=== PATIENT | male | born 1965 | race Caucasian/White ===

== ENCOUNTER 2020-01-13 09:55 | Inpatient (IN) | payer MEDICARE, MEDICAID ==
[2020-01-13] VITALS (33 sets, daily range): BP systolic 86–166; BP diastolic 70–98
[~2020-01-13] VITALS: Ht 167.6 cm; Wt 90.0 kg
[~2020-01-13 09:55] MED LIST: GABA100C9 PO; GLIM4TAB42 PO; METF-370 PO; MUPI2CRE17 EX; SITA50TA13 PO; SULF-35 PO
[2020-01-13 10:52] LABS: Basophils # (auto) 0.1 10 ^3/uL (0-0.2); Basophils % (auto) 0.9 % (0.0-2.0); Eosinophils # (auto) 0 10 ^3/uL (0-0.8); Eosinophils % (auto) 0.1 % (0.0-7.0); Hematocrit 47.2 % (41.0-53.0); Hemoglobin 15.5 g/dL (13.5-17.5); Lymphocytes % (auto) 6.5 % (10.0-50.0); Mean Corpuscular Hemoglobin 28.7 pg (28.0-32.0); Mean Corpuscular Hgb Conc. 32.8 g/dL (32.0-36.0); Mean Corpuscular Volume 87.5 fL (80.0-100.0); Monocytes # (auto) 0.6 10 ^3/uL (0-1.3); Monocytes % (auto) 3.4 % (0.0-12.0); Neutrophils # (auto) 14.3 10 ^3/uL (1.6-8.6); Neutrophils % (auto) 89.1 % (37.0-80.0); Nucleated Red Blood Cells % 0.1 %; Platelet Count (auto) 325 10^3/uL (140-450); Red Blood Cells 5.39 10^6/uL (4.5-5.90); Red Cell Distribution Width 13.4 % (11.8-14.3)
[2020-01-13] MEDS ORDERED: SODIUM CHLORIDE 0.9% 1,000 ML IVB ONE (11:04)
[2020-01-13 11:08] LABS: Albumin 4.3 g/dL (3.4-5.0); Anion Gap 19 (5-15); Blood Urea Nitrogen 31 mg/dL (7-18); Calcium 10.8 mg/dL (8.5-10.1); Carbon Dioxide 19 mmol/L (21-32); Chloride 98 mmol/L (98-107); Potassium 3.7 mmol/L (3.5-5.1); Sodium 136 mmol/L (136-145)
[2020-01-13 11:14] LABS: Alanine Aminotransferase 23 U/L (16-61); Alkaline Phosphatase 93 U/L (45-117); Aspartate Aminotransferase 17 U/L (15-37); BUN/Creatinine Ratio 18.9; Bilirubin, Total 1.1 mg/dL (0.2-1.0); GFR African American 57 mL/min; GFR Non-African American 47 mL/min
[2020-01-13] MEDS ORDERED: ALUM & MAG HYDROX-SIMETH LIQ(MAALOX) 30 ML PO ONE (11:15)
[2020-01-13] MEDS ORDERED: DONNATAL 5ml ORAL Elix (BELLADONNA ALK-PHENOBARB) PO ONE (11:15)
[2020-01-13] MEDS ORDERED: HYDROmorphone HCL 2 MG/ML VL IV ONE (11:15)
[2020-01-13] MEDS ORDERED: FAMOTIDINE 20 MG TAB PO ONE (11:15)
[2020-01-13] MEDS ORDERED: PROMETHAZINE HCL 25 MG/ML 1ML IV PRN (11:15)
[2020-01-13 11:41] LABS: Glucose 545 mg/dL (74-106)
[2020-01-13 12:41] LABS: Urine Bacteria FEW /hpf (None Seen); Urine Blood Negative /uL (Negative); Urine Specific Gravity 1.025 (1.001-1.035); Urine WBC <1 /hpf (0 - 3)
[2020-01-13] MEDS ORDERED: InsuLIN REG 1unit/0.01ml Soln (100units/ml) IV ONE (12:45)
[2020-01-13] MEDS ORDERED: SOD CHL 0.9%/ KCL 20MEQ 1,000 ML IV ONE (12:45)
[2020-01-13] MEDS ORDERED: InsuLIN R (HUMAN) 100 UNITS in SODIUM CHL 0.9% 99 ML IV SCH (13:14)
[2020-01-13] MEDS: SODIUM CHLORIDE 0.9% 1,000 ML IV SCH ×3 (13:14→19:21)
[2020-01-13] MEDS ORDERED: INSULIN LANTUS (GLARGINE) 1 /0.01ml (100units/ml) SC ONE (13:15)
[2020-01-13] MEDS ORDERED: DEXTROSE (50%) 50ML SYRG IV PRN (13:15)
[2020-01-13] MEDS ORDERED: LABETALOL HCL 5 MG/ML ML 20ML VIAL IV PRN (13:30)
[2020-01-13] MEDS ORDERED: MORPHINE SULF INJ 2 MG/ML SYRINGE 1ML IV PRN ×2 (13:30)
[2020-01-13] MEDS ORDERED: NITROGLYCERIN 0.4 MG SL TAB SL PRN (13:30)
[2020-01-13 13:41] LABS: Magnesium 2.1 mg/dL (1.6-2.6); Phosphorus 2.4 mg/dL (2.5-4.90)
[2020-01-13] MEDS: ACCU-CHEK COMFORT CURVE STRIP VI SCH ×7 (13:46→22:33)
[2020-01-13] MEDS: ONDANSETRON HCL 4 MG/2 ML VIAL IV PRN (14:43)
[2020-01-13] MEDS ORDERED: SODIUM CHLORIDE 0.9% 1,000 ML IV SCH (17:14)
--- NOTE | 2020-01-13 17:30 | NUR ---
ADMISSION COMPLETED, SEE COMPLETED INTERVENTIONS. PATIENT ARRIVED AROUND 1430 TO ICU FROM ER STRETCHER. PATIENT ARRIVED IN STABLE CONDITION. RN STARTED INSULIN GTT PER ORDER/ACCUCHECKS Q1.5 HRS. IVF NS WITH 20K COMPLETED AND NOW INFUSING NS ORDERED. RN INSERTED 20 G RIGHT HAND IV ON FIRST ATTEMPT WITH PATIENT TOLERATING WELL. N/V ASSESSED AND ZOFRAN GIVEN WITH SOME RELIEF OF NAUSEA. REFUSED TO LET RN ASSESS BLE AND SACRUM WITH REFUSING TO TAKE PANTS OFF. PATIENT IS HOMELESS AND LIVES IN CAR. STATES HE HAS A CELL PHONE IN CAR AND WANTS TO WALK DOWN TO GET IT. RN VERBALIZED NEED FOR CRITICAL CARE AND INABLIITY TO LEAVE UNIT UNLESS HE SIGNS OUT AMA DUE TO SAFETY OF PATIENT. RN OFFERED SECURITY TO GET PHONE BUT REFUSED STATING "I DONT TRUST ANYONE". SOCIAL SERVICE CONSULT PLACED FOR HOMELESSNESS.
--- NOTE | 2020-01-13 19:18 | NUR ---
OPENING NOTE RECEIVED REPORT FROM MAYCOL LORENZO. PATIENT AOX4 ON 2L NC STATING >95% SPO2. NSR IN 80'S WITH BP 140/83, ON NO PRESSURE MEDICATIONS. PATIENT ON AN INSULIN DRIP @ 1.5 UNITS PER HOUR. NO SIGNS AND SYMPTOMS OF HYPOGLYCEMIA. RIGHT AND LEFT AC 20 IV'S INTACT AND PATENT. INSTRUCTED PATIENT TO USE URINAL. SKIN INTACT. FOR MORE INFORMATIONS SEE INTERVENTIONS. FOR GTTS AND THEIR TITRATIONS SEE IV SPREAD SHEET. CALL LIGHT WITHIN REACH. INSTRUCTED PATIENT TO CALL IN NEED OF ASSISTANCE. ALL FALL AND SAFETY PRECAUTIONS IN PLACE.
--- NOTE | 2020-01-13 19:18 | NUR ---
REPORT GIVEN TO MUSTAPHA LORENZO
[2020-01-13 19:42] LABS: BUN/Creatinine Ratio 23.1; Potassium 3.9 mmol/L (3.5-5.1)
[2020-01-13 19:48] LABS: Alcohol, Urine < 3.0 mg/dL (0-5); Amphetamine Screen, Urine NEGATIVE (NEGATIVE); Barbiturate Scree,Urine NEGATIVE (NEGATIVE); Benzodiazephine Screen, Urine NEGATIVE (NEGATIVE); Cannabinoid Screen, Urine NEGATIVE (NEGATIVE); Cocaine Screen, Urine NEGATIVE (NEGATIVE); Opiate Scree,Urine NEGATIVE (NEGATIVE); Phencyclidine Screen, Urine NEGATIVE (NEGATIVE)
--- NOTE | 2020-01-13 19:48 | NUR ---
insulin drip bs 149, insulin drip changed to 1u/hr per sliding scale
--- NOTE | 2020-01-13 21:16 | NUR ---
BS 144 NO CHANGE ON INSULIN GTT
[2020-01-13] MEDS ORDERED: FAMOTIDINE (10MG/ML) 2ML VL IV SCH (22:00)
--- NOTE | 2020-01-13 22:33 | NUR ---
BS 122
[2020-01-14] VITALS (35 sets, daily range): BP systolic 114–168; BP diastolic 68–93
--- NOTE | 2020-01-14 | NUR ---
bs 127 no change on insulin gtt
[2020-01-14] MEDS: ACCU-CHEK COMFORT CURVE STRIP VI SCH ×11 (00:19→20:09)
[2020-01-14] MEDS: HYDROmorphone HCL 2 MG/ML VL IV PRN ×4 (00:36→17:15)
--- NOTE | 2020-01-14 01:23 | NUR ---
bs 143 no change on insulin gtt
[2020-01-14] MEDS: SODIUM CHLORIDE 0.9% 1,000 ML IV SCH ×3 (01:54→22:05)
--- NOTE | 2020-01-14 02:48 | NUR ---
BLOOD SUGAR - 135, NO CHANGE TO INSULIN GTT.
--- NOTE | 2020-01-14 03:22 | NUR ---
patient refused labs educated patient on the importance of giving blood to have morning labs. patient refused saying "i'm not giving anymore blood until the doctor comes and sees me" when lab roller gold leaf entered the room. held labs at this time.
--- NOTE | 2020-01-14 04:15 | NUR ---
patient refused to be cleaned patient stated "no i don't want you bothering me, i want to keep my pants on"
--- NOTE | 2020-01-14 04:30 | NUR ---
bs 142 no change on insulin gtt
--- NOTE | 2020-01-14 06:03 | NUR ---
bs 125 no change
--- NOTE | 2020-01-14 06:08 | NUR ---
patient expressed he does not need to void patient said "i do not need to pee, i will go when i want to stop bothering me"
--- NOTE | 2020-01-14 07:26 | NUR ---
bs 129 no change
--- NOTE | 2020-01-14 07:30 | NUR ---
INITIAL/ONGOING ASSESSMENT: Patient yelling out for nurse, entered room for assistance. Patient yelling that his arm in hurting, blood pressure cuff is inflating for blood pressure measurement. Educated patient regarding interval of blood pressure measurement for ICU, patient states he want the blood pressure cuff off; informed him that cuff will be repositioned but that it needs to be left on to monitor his vital signs. Patient agreed after cuff adjustment. Patient states that he is having pain and is nauseas, patient medicated as per orders. Patient is also concerned about having elevated blood pressure at this time; informed him that if his blood pressure remains elevated after administration pain medication there are orders for IV blood pressure medication. Patient verbalized understanding.
[2020-01-14] MEDS: ONDANSETRON HCL 4 MG/2 ML VIAL IV PRN ×2 (07:51→17:15)
[2020-01-14 09:05] LABS: Basophils # (auto) 0.1 10 ^3/uL (0-0.2); Basophils % (auto) 0.9 % (0.0-2.0); Eosinophils # (auto) 0 10 ^3/uL (0-0.8); Eosinophils % (auto) 0.4 % (0.0-7.0); Hematocrit 39.9 % (41.0-53.0); Hemoglobin 13.2 g/dL (13.5-17.5); Lymphocytes # (auto) 1.6 10 ^3/uL (0.4-5.4); Lymphocytes % (auto) 13.8 % (10.0-50.0); Mean Corpuscular Hemoglobin 28.8 pg (28.0-32.0); Mean Corpuscular Volume 87.1 fL (80.0-100.0); Monocytes # (auto) 0.6 10 ^3/uL (0-1.3); Monocytes % (auto) 5.5 % (0.0-12.0); Neutrophils % (auto) 79.4 % (37.0-80.0); Nucleated Red Blood Cells % 0.2 %; Platelet Count (auto) 260 10^3/uL (140-450); Red Blood Cells 4.58 10^6/uL (4.5-5.90); Red Cell Distribution Width 13.6 % (11.8-14.3); White Blood Cell 11.3 10^3/uL (4.4-10.8)
[2020-01-14 09:35] LABS: Calcium 8.6 mg/dL (8.5-10.1); Potassium 3.7 mmol/L (3.5-5.1)
[2020-01-14 09:38] LABS: BUN/Creatinine Ratio 17.5; Bilirubin, Total 0.5 mg/dL (0.2-1.0); Total Protein 6.6 g/dL (6.4-8.2)
[2020-01-14] MEDS ORDERED: INSULIN LANTUS (GLARGINE) 1 /0.01ml (100units/ml) SC ONE ×2 (12:26→12:30)
[2020-01-14] MEDS ORDERED: PANTOPRAZOLE 40 MG/10 ML VIAL INJ IV ONE (12:27)
[2020-01-14] MEDS: PANTOPRAZOLE 40 MG/10 ML VIAL INJ IV SCH (12:40)
[2020-01-14] MEDS ORDERED: DEXTROSE (50%) 50ML SYRG IV PRN (13:30)
--- NOTE | 2020-01-14 13:48 | NUR ---
RETURN FROM CT: Patient returned from CT, tolerated procedure well.
--- NOTE | 2020-01-14 15:53 | NUR ---
RN REPORTS THAT PATIENT IS TRANSFERRING WELL AND P.T. WILL PROBABLY NOT BE NEEDED. PHYSICAL THERAPY WILL CONTACT NURSING TOMORROW FOR AN UPDATE.
[2020-01-14] MEDS: InsuLIN REG 1unit/0.01ml Soln (100units/ml) SC SCH ×2 (16:57→20:00)
--- NOTE | 2020-01-14 17:05 | NUR ---
HOSPITALIST PAGED; orthopedically impaired teacher hospitalist paged for pain medication orders. Await return call
--- NOTE | 2020-01-14 17:07 | NUR ---
RETURN PAGE; Spoke with Arsenio Blackman, received order for pain control medication.
[2020-01-14] MEDS ORDERED: HYDROmorphone HCL 2 MG/ML VL ONE (17:11)
--- NOTE | 2020-01-14 19:10 | NUR ---
Report received from Cedrick LORENZO.
--- NOTE | 2020-01-14 19:22 | NUR ---
Bed assignment RM 294B BJ Delgado
--- NOTE | 2020-01-14 19:35 | NUR ---
REPORT IS GIVEN TO LING LORENZO.
--- NOTE | 2020-01-14 19:45 | NUR ---
ICU patient trans to floor SABA,YAMILEX [place] transferred to [facility] via wheelchair on portable 02. All patient medications and personal belongings transferred with patient to receiving floor. Patient care transferred to Sandy LORENZO. patient is med-surg status.
--- NOTE | 2020-01-14 20:00 | NUR ---
RECEIVED PT VIA WHEELCHAIR WITH O2, ALERT AND ORIENTED X 4, DINNER TRAY AT BEDSIDE, IVF NS AT 100ML/HR, C/O NAUSEA AND VOMITING, RECENTLY GIVEN ZOFRAN.
[2020-01-14] MEDS: INSULIN LANTUS (GLARGINE) 1 /0.01ml (100units/ml) SC SCH (22:05)
[2020-01-15] MEDS: ACCU-CHEK COMFORT CURVE STRIP VI SCH ×7 (00:17→23:55)
[2020-01-15] MEDS: ONDANSETRON HCL 4 MG/2 ML VIAL IV PRN ×2 (03:11→12:29)
[2020-01-15] MEDS: HYDROmorphone HCL 2 MG/ML VL IV PRN ×4 (03:11→20:44)
[2020-01-15] MEDS: InsuLIN REG 1unit/0.01ml Soln (100units/ml) SC SCH ×7 (03:17→23:56)
--- NOTE | 2020-01-15 04:15 | NUR ---
PATIENT VERBALIZED, HE DOES NOT NEED PSYCHIATRY CONSULT.
[2020-01-15 05:00] VITALS: BP 131/70
--- NOTE | 2020-01-15 08:00 | NUR ---
Opening Note Assumed care of patient, he is A & O x4 at this time. No s/s of distress, patient c/o pain to the medial upper stomach and abdomen as well nausea, no vomiting at this time. Patient has been dry heaving. POC discussed with patient. Bed is in lowest, locked position, call light within reach. Patient uses urinal independently. Will continue to monitor Q1h and PRN and medicate per orders.
[2020-01-15] MEDS: PANTOPRAZOLE 40 MG/10 ML VIAL INJ IV SCH (08:43)
[2020-01-15] MEDS: SODIUM CHLORIDE 0.9% 1,000 ML IV SCH (08:44)
[2020-01-15 09:00] VITALS: BP 157/91
--- NOTE | 2020-01-15 09:29 | NUR ---
Patient refusing lab draws.
--- NOTE | 2020-01-15 10:55 | NUR ---
Received Social Service consult referral to see pt. Pt is alert and oriented times 3. Pt states he did not ask to see a social services technician and does not wish to see one. Pt states he does not reside in this area. Addendum: 01/15/20 at 1102 by ALEJANDRA GEORGE SS Amended: Links added.
--- NOTE | 2020-01-15 13:03 | NUR ---
Patient signed AMA to smoke. Patient requested to go to his car to retrieve his phone, he is A & O x4, and ambulatory independently at this time. Security requested to escort patient. Educated patient regarding policy.
--- NOTE | 2020-01-15 13:15 | NUR ---
Patient returned to room. Patient informed me that he would like to change rooms, he is not getting along with his roommate. Called program evaluator, Melissa, she is in a meeting at this time. Will attempt to resolve problem with roommate until patient can be moved.
--- NOTE | 2020-01-15 15:10 | NUR ---
Dr. Mitchell at bedside. Discussed EGD with patient, plan for tomorrow.
--- NOTE | 2020-01-15 15:49 | NUR ---
PT IS ABLE TO AMBULATE WITHOUT DIFFICULTY OR SYMPTOMS. NURSING TO MONITOR PATIENT NEEDED.
[2020-01-15] MEDS: SUCRALFATE 1 GM/10 ML ORAL SUSP PO SCH ×2 (16:56→21:46)
[2020-01-15 17:00] VITALS: BP 127/71
--- NOTE | 2020-01-15 18:30 | NUR ---
Patient continues to have nausea and vomiting. Patient tolerated some lunch today, but began with nausea and vomiting following dinner. Medicated per orders.
--- NOTE | 2020-01-15 19:23 | NUR ---
patient refusing for me to assess back. patient educated on benefits of assessing skin. patient refused
--- NOTE | 2020-01-15 19:24 | NUR ---
Opening Shift Note Assumed care of patient. patient is sleeping with bilateral chest rise and fall rr 16. No S/S of distress/SOB or pain shown by patient.W ill continue to monitor for changes Q1hr and PRN. bed in low position and call light within reach.
--- NOTE | 2020-01-15 20:20 | NUR ---
patient educated on POC and informed patient he is to be NPO at midnight. patient educated to leave belongings at bedside during procedure. patient yelled " i am taking my wallet" patient reeducated on hospital policy and patient became angry stating " i am only going to leave my keys here not my wallet.". Will endorse care to dayshift rn.
--- NOTE | 2020-01-15 20:20 | NUR ---
IV removal IV DC'd with clean sterile technique due to iv leaking, catheter fully intact. Pressure dressing applied to site. Patient tolerated well.
--- NOTE | 2020-01-15 20:44 | NUR ---
pain patyient reports abd pain of 6/10 aching. patient mediated per protocol
--- NOTE | 2020-01-15 21:14 | NUR ---
pain reassessment. patient reports pain 0/10
[2020-01-15 22:00] VITALS: BP 139/81
[2020-01-15] MEDS: PANTOPRAZOLE 40 MG TAB PO SCH (22:00)
[2020-01-15] MEDS ORDERED: PANTOPRAZOLE 40 MG/10 ML VIAL INJ IV SCH (22:00)
[2020-01-15] MEDS: INSULIN LANTUS (GLARGINE) 1 /0.01ml (100units/ml) SC SCH (22:02)
--- NOTE | 2020-01-15 23:56 | NUR ---
patient refused accu-check scheduled for 0000. patient educated on benefits and risks of monitoring his blood sugar and reason why MD scheduled accu-check. patient verbalized understanding. patient reeducated and yelled " I do not want it you just took it at 1000, leave me alone already!". will continue to monitor q1hr and prn
[2020-01-16] MEDS: InsuLIN REG 1unit/0.01ml Soln (100units/ml) SC SCH ×3 (04:00→12:14)
--- NOTE | 2020-01-16 04:00 | NUR ---
PATIENT REFUSED LINEN CHANGE. Addendum: 01/16/20 at 0425 by ANGEL LUIS WILSON RN RN PATIENT REFUSING VITAL SIGNS PATIENT EDUCATED ON BENEFITS OF VITAL SIGNS AND RISKS OF NOT HAVING VITAL SIGNS TAKEN PER PATIENT " MY BLOOD PRESSURE IS FINE." PATIENT REEDUCATED CONTINUE TO REFUSED. PATIENT VERBALIZED UNDERSTANDING
[2020-01-16] MEDS: ACCU-CHEK COMFORT CURVE STRIP VI SCH ×3 (04:07→12:14)
--- NOTE | 2020-01-16 05:28 | NUR ---
patient refused lab draw. patient educated on benefits and risks of lab not being drawn and that labs are ordered for procedure today. patient upset and yelled " leave me alone come back until after 0800!"
[2020-01-16] MEDS: SUCRALFATE 1 GM/10 ML ORAL SUSP PO SCH ×2 (06:04→11:02)
--- NOTE | 2020-01-16 06:44 | NUR ---
patient rounds patient is in bed sleeping. shows no signs of distress,sob, or pain. bed in low position and call light within reach.
--- NOTE | 2020-01-16 07:11 | NUR ---
REPORT GIVEN DAYSHIFT RN. ENDORSE CARE TO RN THAT PATIENT REFUSED LABS SCHEDULED. PATIENT SHOW NO SIGNS OF DISTRESS SOB OR PAIN
[2020-01-16 08:00] VITALS: BP 159/91
[2020-01-16] MEDS ORDERED: NALOXONE HCL 0.4 MG/ML VIAL ONE (08:50)
[2020-01-16] MEDS ORDERED: LIDOCAINE VISCOUS 2% 15ML UD ONE (08:50)
[2020-01-16] MEDS ORDERED: SODIUM CHLORIDE LOCK 10 ML ONE (08:50)
[2020-01-16] MEDS ORDERED: diphenhdrAMINE HCL 50 MG/1 ML VL ONE (08:51)
[2020-01-16 09:00] VITALS: BP 159/91
[2020-01-16 09:17] LABS: Basophils # (auto) 0.1 10 ^3/uL (0-0.2); Basophils % (auto) 1.5 % (0.0-2.0); Eosinophils # (auto) 0.1 10 ^3/uL (0-0.8); Eosinophils % (auto) 1.7 % (0.0-7.0); Hematocrit 40.6 % (41.0-53.0); Hemoglobin 13.8 g/dL (13.5-17.5); Lymphocytes # (auto) 1.8 10 ^3/uL (0.4-5.4); Lymphocytes % (auto) 21.8 % (10.0-50.0); Mean Corpuscular Hemoglobin 29.1 pg (28.0-32.0); Mean Corpuscular Hgb Conc. 34.1 g/dL (32.0-36.0); Mean Corpuscular Volume 85.2 fL (80.0-100.0); Monocytes # (auto) 0.6 10 ^3/uL (0-1.3); Monocytes % (auto) 7.2 % (0.0-12.0); Neutrophils # (auto) 5.7 10 ^3/uL (1.6-8.6); Neutrophils % (auto) 67.8 % (37.0-80.0); Platelet Count (auto) 249 10^3/uL (140-450); Red Blood Cells 4.76 10^6/uL (4.5-5.90); Red Cell Distribution Width 13.3 % (11.8-14.3); White Blood Cell 8.4 10^3/uL (4.4-10.8)
[2020-01-16 09:31] LABS: INR 1.01 (0.9-1.15)
[2020-01-16 09:34] LABS: Calcium 8.8 mg/dL (8.5-10.1); Magnesium 1.7 mg/dL (1.6-2.6); Potassium 3.4 mmol/L (3.5-5.1)
[2020-01-16 09:39] LABS: BUN/Creatinine Ratio 8.1; Bilirubin, Total 0.6 mg/dL (0.2-1.0); Total Protein 6.7 g/dL (6.4-8.2)
--- NOTE | 2020-01-16 09:48 | NUR ---
PATIENT OFF FLOOR TO EGD
[2020-01-16] MEDS: fentaNYL CITRATE 100 MCG/2 ML VL ONE ×2 (10:01→10:04)
[2020-01-16] MEDS: MIDAZOLAM HCL 5 MG/ML-1ML VIAL ONE ×2 (10:01→10:04)
[2020-01-16] MEDS: FLUMAZENIL 0.1 MG/ML INJ 10ML MDV IV ONE ×2 (10:10→10:15)
[2020-01-16 10:12] LABS: Folate (Folic Acid) 11.24 ng/mL (5.38-24)
--- NOTE | 2020-01-16 10:50 | NUR ---
PATIENT RETURNED TO FLOOR FROM EGD. VS 144/82, 98.2, 77HR, 94 2LNC, 19RR. PATIENT RESTING COMFORTABLY, NO COMPLAINTS OF PAIN.
[2020-01-16] MEDS: PANTOPRAZOLE 40 MG TAB PO SCH (11:02)
[2020-01-16 13:00] VITALS: BP 131/68
--- NOTE | 2020-01-16 13:17 | NUR ---
DR XIAO BEDSIDE WITH PATIENT DISCUSSING PLAN OF CARE
--- NOTE | 2020-01-16 13:30 | NUR ---
PATIENT VERBALIZED THE NEED FOR INSULIN PRIOR TO DISCHARGE. PER DR XIAO, WE CAN CALL IN INSULIN FOR PATIENT IF NEEDED. UPON TALKING TO PATIENT AGAIN, THE PATIENT DOES HAVE INSULIN, HE THOUGHT THE INSULIN WAS OUT OF DATE, WE REVIEWED THE INSULIN TOGETHER AND IT IS NOT . PER PATIENT, HE DOES NOT NEED ANY MORE INSULIN.
[2020-01-16 15:10] VITALS: BP 151/91
--- NOTE | 2020-01-16 15:50 | NUR ---
Discharge instructions given as ordered. Encourage to follow up with PMD, Patient will make f/u appointment with his provider. All questions and concerns addressed. Patient verbalized understanding. Medication reconciliation form completed and copy given to patient. No home medications being held in Pharmacy, and patient refused needed vaccines. IV removed with catheter intact and pressure dressing applied. Patient taken to vehicle via wheelchair with all personal belongings, accompanied by staff member. No distress noted at time of departure.
--- NOTE | 2020-01-16 15:55 | NUR ---
MRSA SWAB SENT TO LAB
[2020-01-16] MEDS ORDERED: PANTOPRAZOLE 40 MG TAB PO SCH (22:00)
== END 2020-01-16 15:50 | disposition home or self-care (01) | DRG 637 ==
LOC: ER 09:55 → ICU WEST 09:56 → WEST WING 01-14 20:00
PROVIDERS: ADMIT Nurse Practitioner Acute Care; ATTEND Internal Medicine
PROC: 0DB68ZX Excision of Stomach, Via Natural or Artificial Opening Endoscopic, Diagnostic (ICD-10-PCS; principal; 2020-01-16 09:54)
DX: E11.10 Type 2 diabetes mellitus with ketoacidosis without coma (principal); N17.0 Acute kidney failure with tubular necrosis; R65.10 Systemic inflammatory response syndrome (SIRS) of non-infectious origin without acute organ dysfunction; E44.1 Mild protein-calorie malnutrition; K29.70 Gastritis, unspecified, without bleeding; K21.0 Gastro-esophageal reflux disease with esophagitis; I12.9 Hypertensive chronic kidney disease with stage 1 through stage 4 chronic kidney disease, or unspecified chronic kidney disease; E66.9 Obesity, unspecified; R13.10 Dysphagia, unspecified; Z59.0 Homelessness; Z91.19 Patient's noncompliance with other medical treatment and regimen; Z79.4 Long term (current) use of insulin; Z68.32 Body mass index [BMI] 32.0-32.9, adult; Z87.11 Personal history of peptic ulcer disease
CPT/HCPCS: 36415; 36600; 43239; 71045; 74176; 80048; 80053; 80061; 80307; 81001; 82010; 82607; 82746; 82805; 82962; 83690; 83735; 83930; 84100; 84484; 85025; 85610; 86703; 87081; 93005; 96361; 96365; 96372; 96375; C9113; G0378; J1815; J2250; J2405; J3490

== ENCOUNTER 2020-09-09 11:54 | Emergency (ER) | payer MEDICARE, MEDICAID ==
[~2020-09-09] VITALS: Ht 162.6 cm; Wt 95.3 kg
[2020-09-09 12:15] VITALS: BP 175/100
[2020-09-09] MEDS ORDERED: PANTOPRAZOLE 40 MG/10 ML VIAL INJ IV ONE (12:30)
[2020-09-09] MEDS ORDERED: ONDANSETRON HCL 4 MG/2 ML VIAL IV ONE (12:30)
[2020-09-09] MEDS ORDERED: SODIUM CHLORIDE 0.9% 1,000 ML IV ONE (12:30)
[2020-09-09 12:45] LABS: Basophils # (auto) 0.1 10 ^3/uL (0-0.2); Basophils % (auto) 0.5 % (0.0-2.0); Eosinophils # (auto) 0 10 ^3/uL (0-0.8); Hematocrit 45.8 % (41.0-53.0); Hemoglobin 15.5 g/dL (13.5-17.5); Lymphocytes # (auto) 0.7 10 ^3/uL (0.4-5.4); Lymphocytes % (auto) 5.1 % (10.0-50.0); Mean Corpuscular Hemoglobin 28.2 pg (28.0-32.0); Mean Corpuscular Hgb Conc. 33.7 g/dL (32.0-36.0); Mean Corpuscular Volume 83.5 fL (80.0-100.0); Monocytes # (auto) 0.2 10 ^3/uL (0-1.3); Monocytes % (auto) 1.7 % (0.0-12.0); Neutrophils # (auto) 13.4 10 ^3/uL (1.6-8.6); Neutrophils % (auto) 92.7 % (37.0-80.0); Nucleated Red Blood Cells % 0.1 %; Platelet Count (auto) 291 10^3/uL (140-450); Red Blood Cells 5.48 10^6/uL (4.5-5.90); White Blood Cell 14.4 10^3/uL (4.4-10.8)
[2020-09-09 12:54] LABS: Albumin 3.9 g/dL (3.4-5.0); Anion Gap 14 (5-15); Blood Urea Nitrogen 24 mg/dL (7-18); Calcium 10.1 mg/dL (8.5-10.1); Carbon Dioxide 20 mmol/L (21-32); Chloride 101 mmol/L (98-107); Potassium 4.1 mmol/L (3.5-5.1); Sodium 135 mmol/L (136-145)
[2020-09-09 13:01] LABS: Alanine Aminotransferase 28 U/L (16-61); Alkaline Phosphatase 116 U/L (45-117); Aspartate Aminotransferase 12 U/L (15-37); BUN/Creatinine Ratio 17.1; Bilirubin, Total 0.7 mg/dL (0.2-1.0); GFR African American 68 mL/min; GFR Non-African American 56 mL/min; Total Protein 8.1 g/dL (6.4-8.2)
[2020-09-09 13:07] LABS: Glucose 491 mg/dL (74-106)
[2020-09-09] MEDS ORDERED: InsuLIN REG 1unit/0.01ml Soln (100units/ml) IV ONE (19:30)
== END 2020-09-10 00:57 | disposition home or self-care (01) ==
LOC: ER 11:54
DX: E11.65 Type 2 diabetes mellitus with hyperglycemia (principal); E86.0 Dehydration; I10 Essential (primary) hypertension; Z79.899 Other long term (current) drug therapy
CPT/HCPCS: 36415; 80053; 82010; 82962; 84484; 85025